=== PATIENT | female | born 1995 | race Hispanic/Latino ===

== ENCOUNTER 2022-10-17 17:49 | Inpatient (IN) | payer MEDICAID, OTHER ==
[2022-10-17] MEDS ORDERED: Tranexamic Acid 1,000 MG/10 ML VIAL IVP PRN (18:29)
[2022-10-17] MEDS ORDERED: Acetaminophen 500 MG TAB PO PRN (18:29)
[2022-10-17] MEDS ORDERED: hydrALAZINE 20 MG/ML VIAL SLOW IVP PRN (18:29)
[2022-10-17] MEDS ORDERED: Lidocaine 1% (PF) 30 ML VIAL SC PRN (18:29)
[2022-10-17] MEDS ORDERED: Promethazine HCl 25 MG/ML VIAL IM PRN (18:29)
[2022-10-17] MEDS ORDERED: Ondansetron PF 4 MG/2 ML Vial IVP PRN (18:29)
[2022-10-17] MEDS ORDERED: Carboprost 250 MCG/ML AMP IM PRN (18:29)
[2022-10-17] MEDS ORDERED: Methylergonovine 0.2 MG/ML VIAL IM PRN (18:29)
[2022-10-17] MEDS ORDERED: Misoprostol 200 MCG TAB PR PRN (18:29)
[2022-10-17] MEDS ORDERED: Diphenoxylate HCl/Atropine Tablet PO PRN (18:29)
[2022-10-17 19:42] LABS: Hemoglobin 11.4 g/dL (12.0-15.5); Mean Corpuscular Hemoglobin 29.5 pg (27.0-33.0); Mean Corpuscular Volume 86.8 fl (81.6-98.3); Mean Platelet Volume 12.1 fl (7.4-10.4); Platelet Count 229 10x3/uL (150-450); RBC Distribution Width 13.8 % (11.5-14.5); Red Blood Cell (RBC) Count 3.86 10x6/uL (3.90-5.03); White Blood Cell (WBC) Count 10.2 10x3/uL (3.5-10.5)
[2022-10-17 20:15] LABS: Syphilis Antibody Nonreactive (Nonreactive); Syphilis Antibody Index 0.04 S/CO (<1.00 Non-Reactive)
[2022-10-17 20:16] LABS: HBSAg Index 0.16 S/CO (0-0.99); Hep B Surf Ag - L&D Non-Reactive S/CO (NonReactive)
[2022-10-17 20:17] VITALS: BMI 30.2
[2022-10-17] MEDS: Lactated Ringer's 1,000 ML IV SCH (20:52)
[2022-10-17] MEDS: Misoprostol 100 MCG TAB VAG SCH (20:55)
[2022-10-17] MEDS ORDERED: NS w/ Oxytocin 30 units 500 ML IV SCH ×3 (21:00)
[2022-10-17] MEDS ORDERED: Penicillin G Potassium 5 MILL.UNITS in Sodium Chloride 0.9% 100 ML IVPB SCH (21:00)
[2022-10-18] MEDS: Misoprostol 100 MCG TAB VAG SCH ×6 (00:15→18:15)
[2022-10-18] MEDS: Penicillin G 2.5 MILL.units 2.5 MILL.UNITS in Premix Bag 1 BAG IVPB SCH ×4 (01:20→18:15)
[2022-10-18] MEDS: Lactated Ringer's 1,000 ML IV SCH ×2 (05:25→06:53)
[2022-10-18] MEDS ORDERED: Milk Of Magnesia 30 ML UDCUP PO PRN (13:12)
[2022-10-18] MEDS ORDERED: hydrALAZINE 20 MG/ML VIAL SLOW IVP PRN (13:12)
[2022-10-18] MEDS ORDERED: Bisacodyl 10 MG SUPP PR PRN (13:12)
[2022-10-18] MEDS ORDERED: NS w/ Oxytocin 30 units 500 ML IV SCH (13:15)
[2022-10-18 13:28] LABS: pH (Cord, venous) 7.306 (7.250-7.350)
[2022-10-18] MEDS: Ibuprofen 800 MG TAB PO PRN ×2 (15:22→22:24)
[2022-10-18] MEDS: Ferrous Sulfate 325 MG TAB PO SCH (18:16)
[2022-10-18] MEDS: Docusate 100 MG CAP PO SCH (22:25)
[2022-10-19] MEDS: Ibuprofen 800 MG TAB PO PRN ×2 (06:05→18:40)
[2022-10-19] MEDS: Ferrous Sulfate 325 MG TAB PO SCH ×2 (07:27→18:33)
[2022-10-19] MEDS: Docusate 100 MG CAP PO SCH ×2 (08:12→21:34)
[2022-10-19] MEDS: Prenatal Vitamin 1 TAB PO SCH (08:12)
[2022-10-19] MEDS: Acetaminophen 325 MG TAB PO SCH ×3 (09:40→21:34)
[2022-10-20] MEDS: Acetaminophen 325 MG TAB PO SCH ×2 (03:55→08:20)
[2022-10-20] MEDS: Ibuprofen 800 MG TAB PO PRN (05:40)
[2022-10-20] MEDS: Docusate 100 MG CAP PO SCH (08:19)
[2022-10-20] MEDS: Prenatal Vitamin 1 TAB PO SCH (08:19)
[2022-10-20] MEDS: Ferrous Sulfate 325 MG TAB PO SCH (08:20)
[2022-10-20 08:49] VITALS: BP 112/57; TEMP 97.8
== END 2022-10-20 13:50 | disposition home or self-care (01) | DRG 807 ==
LOC: CSHLD 17:49 → CSHPP 10-18 15:00
PROVIDERS: ADMIT Family Medicine; ATTEND Family Medicine
PROC: 10E0XZZ Delivery of Products of Conception, External Approach (ICD-10-PCS; principal; 2022-10-18)
PROC: 10H07YZ Insertion of Other Device into Products of Conception, Via Natural or Artificial Opening (ICD-10-PCS; 2022-10-18)
PROC: 10907ZC Drainage of Amniotic Fluid, Therapeutic from Products of Conception, Via Natural or Artificial Opening (ICD-10-PCS; 2022-10-18)
PROC: 4A133R1 Monitoring of Arterial Saturation, Peripheral, Percutaneous Approach (ICD-10-PCS; 2022-10-18)
DX: O41.03X0 Oligohydramnios, third trimester, not applicable or unspecified (principal); Z37.0 Single live birth; Z3A.37 37 weeks gestation of pregnancy; O99.824 Streptococcus B carrier state complicating childbirth; D64.9 Anemia, unspecified; O99.02 Anemia complicating childbirth; O32.8XX0 Maternal care for other malpresentation of fetus, not applicable or unspecified
CPT/HCPCS: 36415; 82805; 85027; 86780; 86850; 86900; 86901; 87340; J2540; J2590; J3490; J7120